=== PATIENT | female | born 1950 | race Hispanic/Latino ===

== ENCOUNTER 2021-06-17 05:36 | Day surgery (SDC) | payer MEDICARE ==
[2021-06-17] MEDS ORDERED: ASPIRIN EC 325 MG TAB PO ONE (06:10)
[2021-06-17 06:50] LABS: BUN/Creatinine Ratio 14; Blood Urea Nitrogen 11 mg/dL (7-17); Calcium 8.9 mg/dL (8.4-10.2); Hemolysis Index 12
[2021-06-17 06:52] LABS: INR 1.07 (0.87-1.13)
[2021-06-17] MEDS ORDERED: HEPARIN/NS 5000 UNIT/500ML 1,000 ML IR ONE (06:53)
[2021-06-17] MEDS ORDERED: NITROGLYCERIN SYRINGE 3 ML ONE (06:54)
[2021-06-17] MEDS ORDERED: SODIUM CHLORIDE 0.9% 500 ML 500 ML IV SCH (07:00)
[2021-06-17] MEDS: fentaNYL 100 MCG/2 ML INJ ONE ×3 (07:12→08:10)
[2021-06-17] MEDS: MIDAZOLAM 2 MG/2 ML INJ ONE ×2 (07:13→08:00)
[2021-06-17] MEDS: LIDOCAINE (2%) 20 MG/1 ML VIAL 20 ML MDV INFILTRATI ONE ×3 (07:16→08:08)
[2021-06-17] MEDS: HEPARIN 10,000 UNITS/10 ML VIAL ONE ×2 (07:16→08:12)
[2021-06-17] MEDS: VERAPAMIL 5 MG/2 ML INJ ONE ×2 (07:18→08:12)
[2021-06-17 07:57] LABS: Red Blood Count 3.55 M/mm3 (3.65-5.03)
[2021-06-17 07:58] LABS: Hematocrit 37.9 % (30.3-42.9); Hemoglobin 13.4 gm/dl (10.1-14.3); Lymphocytes % (Auto) 29.3 % (13.4-35.0); Mean Corpuscular HGB Conc 13 % (30-34); Mean Corpuscular Volume 107 fl (79-97); Monocytes % (Auto) 7.6 % (0.0-7.3); Platelet Count 250 K/mm3 (140-440); Red Cell Distribution Width 13.2 % (13.2-15.2)
[2021-06-17 07:59] LABS: Basophils # (Auto) 0.1 K/mm3 (0.0-0.1); Basophils % (Auto) 0.7 % (0.0-1.8); Eosinophils # (Auto) 0.2 K/mm3 (0.0-0.4); Eosinophils % (Auto) 2.9 % (0.0-4.3); Lymphocytes # (Auto) 2.4 K/mm3 (1.2-5.4); Monocytes # (Auto) 0.6 K/mm3 (0.0-0.8)
[2021-06-17] MEDS ORDERED: HYDROcodone/ACETAMINOPHEN 5-325 MG TAB PO PRN (09:30)
[2021-06-17] MEDS ORDERED: traMADol 50 MG TAB PO PRN (09:30)
--- NOTE | 2021-06-17 10:12 | Electrocardiograph Report ---
[facility] Test Date: 2021-06-17 Test Time: 06:47:47 Pat Name: JULEE GUZMAN Department: Room: Gender: F Director Of Individual Giving: BEN : 1950 Requested By: ALESSANDRO LEE Order Number: [id number] Reading MD: Iraj Harris Measurements Intervals [place] Rate: 70 P: 71 TN: 193 QRS: -41 QRSD: 100 T: 108 QT: 399 QTc: 429 Interpretive Statements Sinus rhythm LVH with secondary repolarization abnormality No previous ECG available for comparison Electronically Signed On 06-17-2021 10:11:26 EDT by Iraj Harris
[2021-06-17 13:32] VITALS: BP 169/44
--- NOTE | 2021-06-24 12:20 | Cardiac Catherization Report ---
DATE OF PROCEDURE: 06/17/2021 CARDIAC CATHETERIZATION REPORT INDICATION: Abnormal CTA indicating significant coronary disease. SEDATION: Moderate sedation utilized. The sedation start time was 8:00 a.m. The end time was 8:25 a.m. PROCEDURE: PT was prepped in usual sterile fashion, access obtained thru right radial artery. TIG cath used for cors. TR band for hemostasis. LVEDP measured, no LV gram due to ectopy from catheter position. FINDINGS: Aortic pressure 160/71, left ventricular systolic pressure 160, left ventricular end-diastolic filling pressure was 20 mmHg. The ejection fraction was not assessed. ESTIMATED BLOOD LOSS: There was minimal blood loss. HEMOSTASIS: A TR band was used for hemostasis. DISPOSITION: The patient tolerated the procedure well and left the catheterization table in stable condition. CORONARY ANATOMY: 1. This is a right dominant system. 2. The left main is a large vessel and bifurcates into the circumflex and left anterior descending artery. The proximal vessels of the left anterior descending and circumflex appear calcified. In the mid section of the left anterior descending, there is a calcified lesion of 30-40%. This lesion is not significantly obstructive. The flow to the LAD is normal. 3. Circumflex: The circumflex has no significant disease. 4. Right coronary artery: The right coronary artery has no significant disease. It is dominant. FINAL CONCLUSIONS: 1. Nonobstructive coronary artery disease. 2. Hypertension with slightly elevated end-diastolic filling pressure. PLAN: 1. Medical therapy for coronary artery disease. 2. Risk factor modification. We will adjust the patient's blood pressure as an outpatient and titrate it to goal. TID: [id number] RECEIPT: [id number] GP/MARII MTDD
== END 2021-06-17 14:14 | disposition home or self-care (01) ==
LOC: CATHLABREC 05:36
PROVIDERS: ATTEND Internal Medicine Cardiovascular Disease
DX: R07.9 Chest pain, unspecified (principal); I10 Essential (primary) hypertension; E78.00 Pure hypercholesterolemia, unspecified; K21.9 Gastro-esophageal reflux disease without esophagitis; M19.90 Unspecified osteoarthritis, unspecified site; F32.9 Major depressive disorder, single episode, unspecified; F17.210 Nicotine dependence, cigarettes, uncomplicated; Z79.82 Long term (current) use of aspirin; Z79.899 Other long term (current) drug therapy; Z90.49 Acquired absence of other specified parts of digestive tract; Z98.890 Other specified postprocedural states
CPT/HCPCS: 36415; 80048; 85025; 85610; 85730; 93005; 93458; 99156; 99157; C1769; C1887; C1894; J1644; J2250; J3010; J7040; Q9967